=== PATIENT | female | born 1995 | race American Indian/Alaskan Native ===

== ENCOUNTER 2019-08-08 19:13 | Emergency (ER) | payer SELFPAY ==
[2019-08-08 19:23] VITALS: BP 119/79
[2019-08-08 20:10] LABS: HCG Qualitative,Urine Negative (Negative)
[2019-08-08 20:11] LABS: Bacteria,Urine 1+ /HPF (Negative); Bilirubin,Urine NEG (Negative); Blood,Urine NEG (Negative); Color,Urine Yellow (Yellow); Protein,Urine <15 mg/dL mg/dL (Negative); Urobilinogen,Urine < 2.0 mg/dL (<2.0)
[2019-08-08] MEDS ORDERED: AZITHROMYCIN 250 MG TAB PO ONE (20:34)
[2019-08-08] MEDS ORDERED: metroNIDAZOLE 500 MG TAB PO ONE (20:34)
[2019-08-08] MEDS ORDERED: LIDOCAINE-MPF (1%) 10 MG/1 ML VIAL 5 ML INFILTRATI ONE (20:34)
[2019-08-08] MEDS ORDERED: ONDANSETRON 4 MG ODT TAB PO ONE (20:34)
--- NOTE | 2019-08-08 21:01 | Emergency Department Report ---
ED Female HPI - General Chief complaint: Abdominal Pain Stated complaint: STOMACH PAIN Source: patient Mode of arrival: Ambulatory Limitations: No Limitations - History of Present Illness Initial comments: Patient is a A1 24-year-old -British female with no past medical history presents to the ED with complaint of acute onset persistent suprapubic pressure and pain with dysuria, urinary frequency and urgency, vaginal discharge and diarrhea for the last 1 week. Patient admits to being sexually active with an individual for 6 months and that sexual intercourse is unprotected. Patient denies fever, chills, nausea, vomiting, vaginal bleeding, dizziness, syncope, chest pain, shortness of breath or low back pain. MD Complaint: vaginal discharge, pelvic pain, other (dysuria) -: Sudden, week(s) (1) Location: suprapubic, other (vaginal) Radiation: non-radiating Severity: moderate Severity scale (0 -10): 5 Quality: cramping, dull Consistency: constant Improves with: none Worsens with: none Are you Now?: No Associated Symptoms: denies other symptoms, vaginal discharge, abdominal pain (suprapubic), loss of appetite, dysuria. denies: vaginal bleeding, nausea/vomiting, fever/chills, headaches, hematuria, rash, seizure, shortness of breath, syncope, weakness, other - Related Data Sexually active: Yes : 1 Para: 0 A: 1 Previous Rx's Medication Instructions Recorded Last Taken Type Fluconazole [Diflucan TAB] 150 mg PO ONCE #1 tablet 08/08/19 Unknown Rx Ibuprofen [Motrin] 600 mg PO Q8H PRN #30 tablet 08/08/19 Unknown Rx Ondansetron [Zofran Odt] 4 mg PO Q6HR PRN #15 tab.rapdis 08/08/19 Unknown Rx cephALEXin [Keflex] 500 mg PO Q6HR #40 capsule 08/08/19 Unknown Rx metroNIDAZOLE [Flagyl] 500 mg PO Q12HR #14 tab 08/08/19 Unknown Rx ED Review of Systems ROS: Stated complaint: STOMACH PAIN Other details as noted in HPI Constitutional: denies: chills, fever Eyes: denies: eye pain, eye discharge, vision change ENT: denies: ear pain, throat pain Respiratory: denies: cough, shortness of breath, wheezing Cardiovascular: denies: chest pain, palpitations Endocrine: no symptoms reported Gastrointestinal: abdominal pain (suprapubic), diarrhea. denies: nausea, vomiting Genitourinary: urgency, dysuria, frequency, discharge. denies: abnormal menses, dyspareunia Musculoskeletal: denies: back pain, joint swelling, arthralgia Skin: denies: rash, lesions Neurological: denies: headache, weakness, paresthesias Psychiatric: denies: anxiety, depression Hematological/Lymphatic: denies: easy bleeding, easy bruising ED Past Medical Hx - Past Medical History Previous Medical History?: No - Surgical History Past Surgical History?: No - Social History Smoking Status: Current Every Day Smoker Substance Use Type: Alcohol - Medications Home Medications: Home Medications Medication Instructions Recorded Confirmed Last Taken Type Fluconazole [Diflucan TAB] 150 mg PO ONCE #1 tablet 08/08/19 Unknown Rx Ibuprofen [Motrin] 600 mg PO Q8H PRN #30 tablet 08/08/19 Unknown Rx Ondansetron [Zofran Odt] 4 mg PO Q6HR PRN #15 tab.rapdis 08/08/19 Unknown Rx cephALEXin [Keflex] 500 mg PO Q6HR #40 capsule 08/08/19 Unknown Rx metroNIDAZOLE [Flagyl] 500 mg PO Q12HR #14 tab 08/08/19 Unknown Rx ED Physical Exam - General Limitations: No Limitations General appearance: alert, in no apparent distress - Head Head exam: Present: atraumatic, normocephalic, normal inspection - Eye Eye exam: Present: normal appearance, PERRL, EOMI Pupils: Present: normal accommodation - ENT ENT exam: Present: normal exam, normal orophraynx, mucous membranes moist, TM's normal bilaterally, normal external ear exam - Neck Neck exam: Present: normal inspection, full ROM - Respiratory Respiratory exam: Present: normal lung sounds bilaterally. Absent: respiratory distress, wheezes, rales, rhonchi, stridor, chest wall tenderness, accessory muscle use, decreased breath sounds - Cardiovascular Cardiovascular Exam: Present: regular rate, normal rhythm, normal heart sounds. Absent: systolic murmur, diastolic murmur, rubs, gallop - GI/Abdominal GI/Abdominal exam: Present: soft, normal bowel sounds. Absent: tenderness, guarding, hyperactive bowel sounds, hypoactive bowel sounds - Bi-manual exam: Present: other (Pelvic exam deferred, patient declined, prefers self swab) - Extremities Exam Extremities exam: Present: normal inspection, full ROM, normal capillary refill - Back Exam Back exam: Present: normal inspection, full ROM. Absent: tenderness, CVA tenderness (R), muscle spasm, paraspinal tenderness - Neurological Exam Neurological exam: Present: alert, oriented X3, CN II-XII intact, normal gait, reflexes normal - Psychiatric Psychiatric exam: Present: normal affect, normal mood - Skin Skin exam: Present: warm, dry, intact, normal color. Absent: rash ED Course Vital Signs 08/08/19 19:19 Temperature 98.4 F Pulse Rate 80 Respiratory 18 Rate Blood Pressure 119/79 O2 Sat by Pulse 99 Oximetry ED Medical Decision Making - Medical Decision Making This is a A1 24-year-old -British female with no past medical history presents to the ED with complaint of acute onset persistent suprapubic pressure and pain with dysuria, urinary frequency and urgency, vaginal discharge and diarrhea for the last 1 week. Patient admits to being sexually active with an individual for 6 months and that sexual intercourse is unprotected. In the ED, patient is alert and oriented x3 and is not in distress but anxious during the physical exam. Urinalysis shows significant urinary tract infection. The wet prep test shows significant Gardnerella vaginalis and many Trichomonas vaginalis with no yeast detected. Patient was treated for trichomonas infection in the ED with 2 g of Flagyl p.o. x1, also treated with Rocephin and azithromycin empirically for chlamydia and gonorrhea. Patient was discharged home on antibiotics and was advised to drink plenty of fluids, take medication with food and follow-up at the [facility] department for further evaluation of STDs like HIV and syphilis. Alternatively patient was advised to follow-up with her [facility] physician in 5 to 7 days for reevaluation or return to the ED immediately if symptoms get worse. - Differential Diagnosis UTI; PID; STD; Bacterial vaginosis; Colitis Critical care attestation.: If time is entered above; I have spent that time in minutes in the direct care of this critically ill patient, excluding procedure time. ED Disposition Clinical Impression: Acute urinary tract infection, Trichomonas vaginalis infection, Bacterial vaginosis, STD (sexually transmitted disease) Disposition: TO HOME OR SELFCARE Is pt being admited?: No Does the pt Need Aspirin: No Condition: Stable Instructions: Abdominal Pain (ED), Bacterial Vaginosis (ED), Urinary Tract Infection in Women (ED), Trichomoniasis (ED), Safe Sex (ED), Sexually Transmitted Diseases (ED) Additional Instructions: Your test results show significant urinary tract infection, and various STDs as outlined for you during the discussion of the results of the test. Therefore take medications with food, drink plenty of fluids and follow-up with [facility] in 5 to 7 days for reevaluation and for further HIV and syphilis testing among others. Ensure that your partner also gets tested and treated for the same. Return to the ED immediately if symptoms get worse. Prescriptions: Fluconazole [Diflucan TAB] 150 mg PO ONCE #1 tablet metroNIDAZOLE [Flagyl] 500 mg PO Q12HR #14 tab cephALEXin [Keflex] 500 mg PO Q6HR #40 capsule Ibuprofen [Motrin] 600 mg PO Q8H PRN #30 tablet PRN Reason: Pain Ondansetron [Zofran Odt] 4 mg PO Q6HR PRN #15 tab.rapdis PRN Reason: Nausea Referrals: [facility] [Outside] - 3-5 Days [facility] [Provider Group] - 3-5 Days Forms: STI Treatment and Prevention Time of Disposition: 21:06 Print Language: LITHUANIAN
== END 2019-08-08 21:20 | disposition home or self-care (01) ==
LOC: ED 19:13
DX: N39.0 Urinary tract infection, site not specified (principal); A64 Unspecified sexually transmitted disease; N76.0 Acute vaginitis; A59.01 Trichomonal vulvovaginitis; F17.200 Nicotine dependence, unspecified, uncomplicated; Z79.899 Other long term (current) drug therapy
CPT/HCPCS: 81001; 81025; 87210; 87591; 96372; 99283; J0696; Q0162